=== PATIENT | female | born 1945 | race Caucasian/White ===

== ENCOUNTER 2019-09-27 17:09 | Emergency (ER) | payer MEDICARE, OTHER ==
[2019-09-27] MEDS ORDERED: LIDOCAINE 2% VISCOUS SOLN 15 ML UDCUP PO ONE (18:02)
[2019-09-27] MEDS ORDERED: MAG HYDROX/AL HYDROX/SIMETH SUSP 30 ML UDCUP PO ONE (18:02)
--- NOTE | 2019-09-27 18:07 | ER Document Report ---
ED General - General Chief Complaint: Chest Pain Stated Complaint: CHEST PAIN/DISCOMFORT Primary Care Provider: MARGARET VIDES PA-C [Primary Care Provider] - Follow up as needed Notes: Patient is a 74-year-old white female with a past medical history of depression, hypertension, acid reflux who presents to the emergency department with a chief complaint of chest pain. She states the pain is a burning sensation in the center chest. She states that it radiates up to the throat. She states the pain is worse when lying down especially at night. She states if she sits up the pain improved some but it is still there. She admits to a mild ongoing unexplained cough as well. She states that her voice is often hoarse and combination with this. Also states that she often has a bitter taste in the back of the tongue. She was recently placed on Tessalon Perles by her primary for the unexplained mild dry chronic intermittent cough. She denies any shortness of breath. States the Tessalon is her only new medication. She denies any fever, nausea vomiting, diarrhea or abdominal pain. TRAVEL OUTSIDE OF THE [place] IN LAST 30 DAYS: No - Related Data Allergies/Adverse Reactions: No Known Allergies Allergy (Verified 09/27/19 17:21) Past Medical History - Social History Smoking Status: Never Smoker Family History: Reviewed & Not Pertinent Patient has suicidal ideation: No Patient has homicidal ideation: No - Past Medical History Cardiac Medical History: Reports: Hx Hypercholesterolemia, Hx Hypertension Endocrine Medical History: Reports: Hx Diabetes Mellitus Type 2 Review of Systems - Review of Systems Cardiovascular: Chest pain Respiratory: Cough -: Yes All other systems reviewed and negative Physical Exam - Vital signs Vitals: Temp Pulse Resp BP Pulse Ox 98.1 F 82 16 180/87 H 99 09/27/19 17:15 09/27/19 17:15 09/27/19 17:15 09/27/19 17:15 09/27/19 17:15 - General General appearance: Appears well, Alert In distress: None - HEENT Head: Normocephalic, Atraumatic Eyes: Normal Conjunctiva: Normal Pupils: PERRL Mucous membranes: Moist Neck: Normal - Respiratory Respiratory status: No respiratory distress Chest status: Nontender Breath sounds: Normal Chest palpation: Normal - Cardiovascular Rhythm: Regular Heart sounds: Normal auscultation - Abdominal Inspection: Normal Distension: No distension Bowel sounds: Normal Tenderness: Nontender Organomegaly: No organomegaly - Neurological Neuro grossly intact: Yes Cognition: Normal Orientation: AAOx4 Cristhian Coma Scale Eye Opening: Spontaneous [place] Coma Scale Verbal: Oriented [place]hian Coma Scale Motor: Obeys Commands [place] Coma Scale Total: 15 Speech: Normal - Psychological Associated symptoms: Normal affect, Normal mood - Skin Skin Temperature: Warm Skin Moisture: Dry Skin Color: Normal Course - Re-evaluation Re-evalutation: 09/27/19 18:10 EKG at 1712, sinus rhythm at 75 bpm. Normal intervals. No STEMI. No evidence of acute ischemic process. 09/27/19 19:01 Initial troponin negative. Heart score is 3, low risk. Etiology highly suspicious for reflux esophagitis. Patient will continue to be monitored, a second troponin EKG will be obtained at the 3-hour davon. 09/27/19 19:22 Reevaluation of the patient at this time. She states her pain has completely resolved. She states she is feeling much better. I discussed with her the inability to completely rule out any cardiac involvement with one troponin and one EKG. We did discuss that her heart score was low risk and the history is very consistent with a reflux esophagitis etiology. She states that she feels very confident that that is what the problem is. I recommended a second troponin at the 3-hour davon as well as a repeat EKG at that time to get a more definitive hold on noncardiac etiology. The patient reports she does not wish to go through with that. She states she has never had any heart problems. She states that she had a normal stress test, chemical stress test, 4 to 5 years ago. She states she has a very close relationship with her PCP and if need be can be quickly referred to a boathouse keeper for outpatient evaluation. I also recommended that her primary doctor sent her to see a emergency telecommunications dispatcher. I think she would benefit from an endoscopy. She will discontinue omeprazole. We will add Dexilant in its place she will also obtain [id number] Maalox and use per label instructions. Will prescribe lidocaine dose cups to mix with the Maalox for home GI cocktail to be used at night before bed as needed. I counseled her at length regarding the importance of outpatient follow-up and advised that she return here or any ER immediately with any new, persistent or worsening symptoms. She verbalized understood and agreed. - Vital Signs Vital signs: Temp Pulse Resp BP Pulse Ox 98.1 F 82 15 141/79 H 96 09/27/19 17:15 09/27/19 17:15 09/27/19 18:43 09/27/19 18:43 09/27/19 18:51 - Laboratory Result Diagrams: 09/27/19 17:47 09/27/19 17:47 Laboratory results interpreted by me: 09/27/19 17:47 Glucose 114 H Creatine Kinase 24 L Discharge - Discharge Clinical Impression: Erosive esophagitis Chest pain Qualifiers: Chest pain type: unspecified Qualified Code(s): R07.9 - Chest pain, unspecified Condition: Stable Disposition: HOME, SELF-CARE Instructions: Chest Pain of Unclear Cause ([facility]), Reflux Disease (GERD) ([facility]) Additional Instructions: Please follow-up with your primary doctor in the next 2 to 3 days for reevaluati on. Please discontinue the omeprazole. In its place you have been prescribed Dexilant, 60 mg by mouth daily. You will be given the lidocaine solution to add to the [id number] Maalox to make your own at home "cocktail" to be used as needed before bedtime for reflux symptoms. Please ask your doctor about referral to a emergency telecommunications dispatcher for possible endoscopy and further evaluation of your esophagitis. Please talk with your doctor about the possibility of cardiology evaluation. As discussed please return here or any ER immediately with any new, persistent or worsening symptoms. Prescriptions: Lidocaine HCl [Xylocaine 2% Viscous Soln 15 ml Udcup] 15 ml PO QHS PRN #30 udc PRN Reason: Dexlansoprazole [Dexilant] 60 mg PO DAILY #30 cap.bp Referrals: MARGARET VIDES PA-C [Primary Care Provider] - Follow up as needed
[2019-09-27 18:19] LABS: ABSOLUTE EOSINOPHILS # (AUTO) 0.2 10^3/uL (0.0-0.6); ABSOLUTE LYMPHOCYTES (AUTO) 2.4 10^3/uL (0.5-4.7); ABSOLUTE MONOCYTES (AUTO) 0.7 10^3/uL (0.1-1.4); ABSOLUTE NEUT (AUTO) 5.9 10^3/uL (1.7-8.2); BASOPHILS % (AUTO) 0.3 % (0-2); HEMATOCRIT 37.3 % (36.0-47.0); HEMOGLOBIN 12.7 g/dL (12.0-15.5); LYMPHOCYTES % (AUTO) 25.8 % (13-45); MEAN CORPUSCULAR VOLUME 91 fl (80-97); MONOCYTES % (AUTO) 7.8 % (3-13); PLATELET COUNT 262 10^3/uL (150-450); RED BLOOD COUNT 4.08 10^6/uL (3.72-5.28); RED CELL DISTRIBUTION WIDTH 13.3 % (11.5-14.0); SEGMENTED NEUTROPHILS % (AUTO) 64.1 % (42-78); TOTAL CELLS COUNTED % (AUTO) 100 %; WHITE BLOOD COUNT 9.2 10^3/uL (4.0-10.5)
--- NOTE | 2019-09-27 18:23 | RADIOLOGY REPORT (SQ) ---
EXAM DESCRIPTION: CHEST SINGLE VIEW COMPLETED DATE/TIME: 09/27/2019 6:09 pm REASON FOR STUDY: cp COMPARISON: None. EXAM PARAMETERS: NUMBER OF VIEWS: One view. TECHNIQUE: Single frontal radiographic view of the chest acquired. RADIATION DOSE: NA LIMITATIONS: None. FINDINGS: LUNGS AND PLEURA: No opacities, masses or pneumothorax. No pleural effusion. MEDIASTINUM AND HILAR STRUCTURES: No masses. Contour normal. HEART AND VASCULAR STRUCTURES: Heart normal in size. Normal vasculature. BONES: No acute findings. HARDWARE: None in the chest. OTHER: No other significant finding. IMPRESSION: NO ACUTE RADIOGRAPHIC FINDING IN THE CHEST. TECHNICAL DOCUMENTATION: JOB ID: [id number] 2010 [employer]- All Rights Reserved Reading location - IP/workstation name: [email or web address]
[2019-09-27 18:25] LABS: INTERNATIONAL RATION (INR) 0.94; PARTIAL THROMBOPLASTIN TIME 30.1 SEC (23.5-35.8); PROTHROMBIN TIME 12.6 SEC (11.4-15.4)
[2019-09-27 18:38] LABS: ALKALINE PHOSPHATASE 62 U/L (38-126); ANION GAP 7 (5-19); ASPARTATE AMINO TRANSFERASE 28 U/L (14-36); BILIRUBIN,DIRECT 0.3 mg/dL (0.0-0.4); BILIRUBIN,TOTAL 0.3 mg/dL (0.2-1.3); BLOOD UREA NITROGEN 16 mg/dL (7-20); CALCIUM 9.4 mg/dL (8.4-10.2); CARBON DIOXIDE 29 mmol/L (22-30); CHLORIDE 102 mmol/L (98-107); CREATINE KINASE 24 U/L (30-135); GLUCOSE 114 mg/dL (75-110); POTASSIUM 3.9 mmol/L (3.6-5.0); TOTAL PROTEIN 7.3 g/dL (6.3-8.2)
[2019-09-27 18:49] LABS: CREATINE KINASE MB 0.25 ng/mL (<4.55)
[2019-09-27 18:50] LABS: TROPONIN I < 0.012 ng/mL
[2019-09-27 19:47] VITALS: BP 162/74
--- NOTE | 2019-09-28 08:19 | EKG REPORT ---
SEVERITY:- NORMAL ECG - SINUS RHYTHM : Confirmed by: Hair Farley MD 28-Sep-2019 08:18:15
== END 2019-09-27 19:45 | disposition home or self-care (01) ==
LOC: ER 17:09
DX: K22.10 Ulcer of esophagus without bleeding (principal); R07.9 Chest pain, unspecified; R05 Cough; F32.9 Major depressive disorder, single episode, unspecified; I10 Essential (primary) hypertension; K21.9 Gastro-esophageal reflux disease without esophagitis; E78.00 Pure hypercholesterolemia, unspecified; E11.9 Type 2 diabetes mellitus without complications
CPT/HCPCS: 93005; 99285; 36415; 82553; 82550; 85025; 85610; 85730; 80053; 84484; 71045; 93010; J3490; A9270

== ENCOUNTER 2019-12-07 07:25 | Day surgery (SDC) | payer MEDICARE, OTHER ==
[~2019-12-07 07:25] MED LIST: PROPOFOL INJ 200 MG/20 ML VIAL IV ONE
[2019-12-07] MEDS ORDERED: MEPERIDINE HCL/PF INJ 25 MG/1 ML DISP.SYRIN IV PRN (08:35)
[2019-12-07] MEDS ORDERED: FENTANYL CITRATE INJ/PF 100 MCG/2 ML AMPUL IV PRN ×3 (08:35)
[2019-12-07] MEDS ORDERED: OXYCODONE-ACETAMINOPHEN 5-325 MG TABLET PO PRN ×2 (08:35)
[2019-12-07] MEDS ORDERED: PROMETHAZINE HCL INJ 25 MG/1 ML VIAL IV PRN ×2 (08:35)
[2019-12-07] MEDS ORDERED: DIPHENHYDRAMINE HCL 50 MG/ML VIAL IV PRN (08:35)
--- NOTE | 2019-12-07 10:25 | Operative Report ---
Operative Report DATE OF SURGERY: 12/07/19 Operative Report: The risks benefits and alternatives of the procedure explained to the patient in detail and informed consent is obtained.A GIF Olympus video scope was inserted into the patient's mouth and hypopharynx, the esophagus is identified intubated and insufflated, the scope was then advanced through the esophagus stomach and duodenum, retroflexion maneuver is done ,the esophagus stomach and first and second portions of the duodenum examined PREOPERATIVE DIAGNOSIS: Dysphagia, gastroesophageal reflux disease POSTOPERATIVE DIAGNOSIS: Schatzki's ring status post breakage. esophageal biopsies also to rule out Tolliver's esophagus. Hiatal hernia. Gastritis status post biopsy OPERATION: EGD with biopsy SURGEON: JENNIFER EMMANUEL ANESTHESIA: LMAC TISSUE REMOVED OR ALTERED: As noted above. COMPLICATIONS: None. ESTIMATED BLOOD LOSS: None. INTRAOPERATIVE FINDINGS: As noted above. PROCEDURE: Patient tolerated the procedure well. No immediate postprocedure complications are noted. Patient is discharged in good condition. Discharge date 12/07/2019. Discharge diet: Regular. Discharge activity: Regular. 2 to 3-week follow-up to discuss findings. Patient is instructed to call the office or proceed to the emergency room should there be any further problems or questions.
[2019-12-07 13:19] VITALS: BP 139/71
== END 2019-12-07 10:25 | disposition home or self-care (01) ==
LOC: OROUT 07:25
PROVIDERS: ATTEND Internal Medicine Gastroenterology
DX: K22.2 Esophageal obstruction (principal); K29.50 Unspecified chronic gastritis without bleeding; K44.9 Diaphragmatic hernia without obstruction or gangrene; K21.9 Gastro-esophageal reflux disease without esophagitis; I10 Essential (primary) hypertension; Z79.899 Other long term (current) drug therapy; Z85.3 Personal history of malignant neoplasm of breast; Z03.818 Encounter for observation for suspected exposure to other biological agents ruled out
CPT/HCPCS: 43239; 88305 ×2; 00731; U0003; J2704; C9803; 731; 87635